=== PATIENT | male | born 2000 ===

== ENCOUNTER 2025-03-12 10:09 | Outpatient (AMB) | payer OTHER, SELFPAY ==
[2025-03-12 10:19] VITALS: BP 117/68; PULSE 94; RESP 16; TEMP 36.7; O2SAT 97; BMI 30.1
--- NOTE | 2025-03-12 10:19 | MHC.PC.OV ---
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 Depression: - Diagnosed in May of the previous year. - Currently managed with prazosin, Depakote, olanzapine, and hydroxyzine. - Reports feeling good with current medication regimen. Anxiety: - Managed with current medication regimen including prazosin and hydroxyzine. Bipolar Disorder: - Diagnosed in May of the previous year. - Managed with Depakote and olanzapine. Insomnia: - Reports difficulty sleeping and waking up during the night. - Discussed with psychiatrist, medication adjustments considered. Review of Systems - Psychiatric: Reports depression, anxiety, and insomnia. Denies any current distress. 10-point ROS reviewed and negative except as noted in HPI Past Medical History - Depression, diagnosed May last year. - Anxiety, managed with medication. - Bipolar disorder, diagnosed May last year. Health Maintenance - Blood tests and electrocardiogram planned for comprehensive health assessment. Physical Exam General: Well-appearing, in no acute distress. Vital signs: Within normal limits. HEENT: Normocephalic, atraumatic. PERRLA, EOMI. Conjunctiva clear, sclera anicteric. Oropharynx clear, mucous membranes moist. TMs intact bilaterally. Neck: Supple, no lymphadenopathy, no thyromegaly, no JVD or carotid bruits. Cardiovascular: RRR, normal S1/S2, no murmurs, rubs, or gallops. Peripheral pulses 2+ and symmetric. No edema. Respiratory: Lungs clear to auscultation bilaterally, no wheezes, rales, or rhonchi. Normal effort. Abdomen: Soft, non-tender, non-distended. Normoactive bowel sounds. No hepatosplenomegaly, no masses. MSK: Full range of motion, no joint swelling or deformity. Normal gait. Skin: Warm, dry, intact. No rashes, lesions, or pallor. Neuro: Alert and oriented x3. Cranial nerves II-XII intact. Strength 5/5 throughout. Sensation intact. Reflexes 2+ symmetric. Normal coordination and gait. Psych: Appropriate mood and affect. Normal judgment and insight. Reports depression, anxiety, and bipolar disorder. Currently taking prazosin, Depakote, olanzapine, and hydrosis. Reports insomnia and difficulty sleeping. Plan 1. Depression - Continue current medication regimen including prazosin, Depakote, olanzapine, and hydroxyzine. - Follow-up with psychiatrist monthly. 2. Anxiety - Continue current medication regimen including prazosin and hydroxyzine. 3. Bipolar Disorder - Continue current medication regimen including Depakote and olanzapine. - Follow-up with psychiatrist monthly. 4. Insomnia - Discuss sleep issues with psychiatrist for potential medication adjustments. Discussion Notes I discussed with the patient the importance of continuing his current medication regimen for depression, anxiety, and bipolar disorder. We also talked about the need for regular follow-ups with his psychiatrist and the plan to conduct blood tests and an electrocardiogram to monitor his health status. Additionally, I advised him to discuss his insomnia with his psychiatrist for potential medication adjustments. Patient was informed and verbally consented to the use of an ambient scribe for clinic note documentation during this visit. Patient Instructions - Continue taking your medications as prescribed. - Follow up with your psychiatrist every month. - Discuss any sleep issues with your psychiatrist. - Attend scheduled blood tests and electrocardiogram appointments. COUNTS INCLUDE 234 BEDS AT THE [facility] Medical History (Updated 03/12/25 @ 10:43 by Juanito Harrison MD) Anxiety and depression Bipolar 1 disorder Family History (Updated 03/12/25 @ 10:25 by Germain Diaz MA) Father No problems noted. Mother No problems noted. Social History (Updated 03/12/25 @ 10:25 by Germain Diaz MA) Housing: Other Alcohol intake: current Alcohol intake frequency: does not drink Patient Tobacco Use Status: Former Tobacco user service: No Current occupational status: unemployed Cognitive needs: No Hearing needs: No Vision needs: No Questionnaire PHQ-9 Over the last 2 weeks, how often have you been bothered by any of the following problems? 1. Little interest or pleasure in doing things: several days 2. Feeling down, depressed, or hopeless: several days 3. Trouble falling or staying asleep, or sleeping too much: several days 4. Feeling tired or having little energy: several days 5. Poor appetite or overeating: not at all 6. Feeling bad about yourself - or that you are a failure or have let yourself or your family down: several days 7. Trouble concentrating on things, such as reading the newspaper or watching television: several days 8. Moving or speaking so slowly that other people could have noticed. Or the opposite - being so fidgety or restless that you have been moving around a lot more than usual: several days 9. Thoughts that you would be better off or of hurting yourself in some way: not at all Total score: 7 Source: Developed by Drs. Chris Mariscal, Cynthia Fernando, Jason Garibay and colleagues, with an educational sherin from [employer]. Thrive Questionnaire I am a: Patient What is your living situation today?: I have a steady place to live Within the past 12 months, did the food you bought not last and you didn't have the money to get more?: Sometimes True Within the past 12 months, did you worry whether your food would run out before you got money to buy more?: Sometimes True Do you have trouble paying for medicines?: No Do you have trouble getting transportation to medical appointments?: No Do you have trouble paying your heating and electricity bill?: No Do you have trouble taking care of your child, family member or friend?: No Are you currently unemployed and looking for a job?: No Are you interested in more education?: No Please select the resources that you would like help with: Housing/Long Term Currently or been in a relationship where the following occur: I choose not to answer THRIVE Score: 2 AUDIT C Alcohol Use Questionnaire (AUDIT-C) 1. How often do you have a drink containing alcohol?: Monthly or less 2. How many drinks containing alcohol do you have on a typical day when you are drinking?: 1 or 2 3. How often do you have six or more drinks on one occasion?: Less than monthly Total Score: 2 JANI-7 AMB Questionnaire JANI-7 Feeling nervous, anxious, or on edge: 1 = Several days Not being able to stop or control worryin = Several days Worrying too much about different things: 1 = Several days Trouble relaxin = Several days Being so restless that it is hard to sit still: 1 = Several days Becoming easily annoyed or irritable: 1 = Several days Feeling afraid as if something awful might happen: 1 = Several days Total JANI-7 score (0-4 normal; 5-9 mild; 10-14 moderate; 15-21 severe): 7 Source: Developed by Drs. Chris Mariscal, Cynthia Fernando, Jason Garibay and colleagues, with an educational sherin from [employer]. Physical exam (Primary Care) Vital Signs: Last Vital Signs Temp 98.1 F 03/12/25 10:19 Pulse 94 03/12/25 10:19 Resp 16 03/12/25 10:19 BP 117/68 03/12/25 10:19 Pulse Ox 97 03/12/25 10:19 Oxygen Delivery Method Room Air 03/12/25 10:19 BMI result Body Mass Index 30.1 Tobacco/Smoking Status: Tobacco use Status Tobacco use date assessed 03/12/25 03/12/25 10:28 Patient Tobacco Use Status Former Tobacco user 03/12/25 10:28 PHQ-9: PHQ-9 Score PHQ-9: Total score 7 03/12/25 10:28 Currently or been in a relationship where the following occur: I choose not to answer Coding Level of Care Code New Pt Level 3 (74838) Diagnoses Bipolar 1 disorder F31.9 Anxiety and depression F41.9; F32.A Encounter to establish care Z76.89 Encounter for screening, unspecified Z13.9 Counseling, unspecified Z71.9 Screening for diabetes mellitus Z13.1 Screening for lipoid disorders Z13.220 Screening for hypertension Z13.6 Screening for heart disease Z13.6 Screening for HIV (human immunodeficiency virus) Z11.4 Difficulty sleeping G47.9 Assessment & Plan Assessment & Plan (1) Bipolar 1 disorder: Code(s): F31.9 - Bipolar disorder, unspecified Category: Medical (2) Anxiety and depression: Code(s): F41.9 - Anxiety disorder, unspecified; F32.A - Depression, unspecified Category: Medical (3) Encounter to establish care: Code(s): Z76.89 - Persons encountering health services in other specified circumstances (4) Encounter for screening, unspecified: Code(s): Z13.9 - Encounter for screening, unspecified (5) Counseling, unspecified: Code(s): Z71.9 - Counseling, unspecified (6) Screening for diabetes mellitus: Code(s): Z13.1 - Encounter for screening for diabetes mellitus (7) Screening for lipoid disorders: Code(s): Z13.220 - Encounter for screening for lipoid disorders (8) Screening for hypertension: Code(s): Z13.6 - Encounter for screening for cardiovascular disorders (9) Screening for heart disease: Code(s): Z13.6 - Encounter for screening for cardiovascular disorders (10) Screening for HIV (human immunodeficiency virus): Code(s): Z11.4 - Encounter for screening for human immunodeficiency virus [HIV] (11) Difficulty sleeping: Code(s): G47.9 - Sleep disorder, unspecified Plan Orders: Orders Comprehensive Met. Panel Today Z13.9 - Encounter for screening, unspecified, Z76.89 - Persons encountering health services in other specified circumstances Hemoglobin A1c Today Z13.9 - Encounter for screening, unspecified, Z76.89 - Persons encountering health services in other specified circumstances Hepatitis B Surface Antibody Today Z13.9 - Encounter for screening, unspecified, Z76.89 - Persons encountering health services in other specified circumstances Syphilis Screen Today Z13.9 - Encounter for screening, unspecified, Z76.89 - Persons encountering health services in other specified circumstances ECG 12 lead EKG Today F31.9 - Bipolar disorder, unspecified, F32.A - Depression, unspecified, F41.9 - Anxiety disorder, unspecified, Z13.9 - Encounter for screening, unspecified Complete Blood Count Auto Diff Today Z13.9 - Encounter for screening, unspecified, Z76.89 - Persons encountering health services in other specified circumstances Hepatitis B Surface Antigen Today Z13.9 - Encounter for screening, unspecified, Z76.89 - Persons encountering health services in other specified circumstances Hepatitis C Antibody Today Z13.9 - Encounter for screening, unspecified, Z76.89 - Persons encountering health services in other specified circumstances HIV Ab/Ag Today Z13.9 - Encounter for screening, unspecified, Z76.89 - Persons encountering health services in other specified circumstances Lipid Panel Today Z13.9 - Encounter for screening, unspecified, Z76.89 - Persons encountering health services in other specified circumstances Chlamydia Species Ab Panel Today Z13.9 - Encounter for screening, unspecified, Z76.89 - Persons encountering health services in other specified circumstances CT NG by PCR Urine Today Z13.9 - Encounter for screening, unspecified, Z76.89 - Persons encountering health services in other specified circumstances TSH reflex Free T4 Today Z13.9 - Encounter for screening, unspecified, Z76.89 - Persons encountering health services in other specified circumstances UA CC w/rflx Micro + Cult Today Z13.9 - Encounter for screening, unspecified, Z76.89 - Persons encountering health services in other specified circumstances Vitamin B12 and Folate Today Z13.9 - Encounter for screening, unspecified, Z76.89 - Persons encountering health services in other specified circumstances Vitamin D 1,25 dihydroxy Today Z13.9 - Encounter for screening, unspecified, Z76.89 - Persons encountering health services in other specified circumstances
--- OUTSIDE RECORDS SUMMARY | 2025-03-12 11:26 | XMS_ITS | Clinical Summary ---
Author Organization [employer] Address [address] [place] [address] Care Team Providers Care Heavy Equipment Sales Associate Name Role Phone Physician, No Pcp Primary Care Provider Unavaila ble Allergies No known active allergies Medications buPROPion XL (WELLBUTRIN XL) 150 mg 24 hr tablet Take 1 tablet (150 mg total) by mouth 1 (one) time each day. Do not crush, chew, or split. 06/09/2024 Active OLANZapine (ZyPREXA) 20 mg tablet Take 1 tablet (20 mg total) by mouth at bedtime. 06/09/2024 Active nicotine polacrilex (NICORETTE) [address] 1 each (4 mg total) into mouth between cheek and gum every 1 (one) hour if needed for smoking cessation. 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 (CMS/HCC V24, CMS/HCC V28) 05/14/2024 Medical History Medical History Date Comments Depression Anxiety Social History Tobacco Use Types Packs/Day Years Used Date Smoking Tobacco: Every Day Cigarettes Smokeless Tobacco: Never Tobacco Cessation:Ready to Q uit: Not Asked; Counseling Given: Not Answered Alcohol Use Standard Drinks/Week Comments Yes 0 (1 standard drink = 0.6 oz pur e alcohol) Sex and Gender Information Value Date Recorded Sex Assigned at Male 04/29/2024 10:23 AM EST Legal Sex Male 12:37 PM EDT Gender Identity Male 04/29/2024 10:23 AM EST Sexual Orientation Choose not to disclose 2023 10:23 AM EST Obstetrics History Last Filed Vital Signs Vital Sign Reading Time Taken Comments Blood Pressure 105/62 06/10/2024 9:10 AM EST Pulse 74 06/10/2024 9:10 AM EST Temperature 36.8 C (98.2 F) 06/10/2024 9:10 AM EST Respiratory Rate 16 06/10/2024 9:10 AM EST Oxygen Saturation 98% 06/10/2024 9:10 AM EST Inhaled Oxygen Concentration - - Weight 81.6 kg (180 lb) 06/09/2024 8:43 AM EST Height 180.3 cm (5' 11 ) 06/09/2024 8:43 AM EST Body Mass Index 25.1 06/09/2024 8:43 AM EST Plan of Treatment Health Maintenance Due Date Last Done Comments HPV Vaccines (1 - Male 3-dos e series) 2015 DTaP,Tdap,and Td Vaccines (1 - Tdap) 2019 Hepatitis A Vaccines (1 of 2 - Risk 2-dose series) 2019 Hepatitis B Vaccines (1 of 3 - 19+ 3-dose series) 2019 Pneumococcal Vaccine: Pediat rics (0 to 5 Years) and At-Risk Patients (6 to 49 Years) (1 of 2 - PCV) 2019 Cholesterol Screening (Lipid Panel) 04/01/2024 HIV Screening 04/01/2024 Hepatitis C Screening 04/01/2024 Social Influencers of Health Screening 04/01/2024 Depression Screening 06/17/2024 COVID-19 Vaccine ( - 2023-2 5 season) 2025 Influenza Vaccine (#1) 2025 HIB Vaccines Aged Out No longer eligi ble based on patient's age to complete this topic IPV Vaccines Aged Out No longer eligi ble based on patient's age to complete this topic MMR Vaccines Aged Out No longer eligi ble based on patient's age to complete this topic Meningococcal ACWY Vaccine Aged Out N o longer eligible based on patient's age to complete this topic Meningococcal B Vaccine Aged Out No l onger eligible based on patient's age to complete this topic RSV Immunization Patients Un sadia 20 months Aged Out No longer eligible b ased on patient's age to complete this topic Varicella Vaccines Aged Out No longer eligible based on patient's age to complete this topic Insurance [facility] Care Teams Heavy Equipment Sales Associate Relationship Specialty Start Date End Date Physician, No Pcp PCP - General 04/18/24
== END 2025-03-12 10:48 | disposition home or self-care (01) ==
LOC: HO.HMCFMS 10:10
PROVIDERS: PCP Student in an Organized Health Care Education/Training Program; Visit Provider Student in an Organized Health Care Education/Training Program
DX: F31.9 Bipolar disorder, unspecified (principal); F41.9 Anxiety disorder, unspecified; G47.9 Sleep disorder, unspecified

== ENCOUNTER 2025-03-12 10:09 | Outpatient (REF) | payer OTHER, SELFPAY ==
[2025-03-12 13:12] LABS: MANUAL DIFF FLAG NO
[2025-03-12 13:21] LABS: Appearance Urine Clear; Glucose Urine UA Negative (Negative); PH 6.5 (5.0-9.0); Specific Gravity - Urine 1.020 (1.005-1.025); UMIC TRIGGER UACC YES
[2025-03-12 13:25] LABS: UACC Culture Trigger YES
[2025-03-12 13:29] LABS: Hematocrit 44.1 % (42.0-52.0); Hemoglobin 14.8 g/dl (14.0-18.0); Imm Gran Abs Auto 0.02 X10*3/uL (0.00-0.03); Imm Gran Pct Auto 0.4 % (0.0-0.4); Lymphocytes Absolute Auto 2.2 X10*3/uL (1.2-4.9); Mean Corpuscular HGB Conc 33.6 g/dl (31.0-36.0); Mean Corpuscular Hemoglobin 31.0 pg (27.0-33.0); Mean Corpuscular Volume 92.5 fL (80.0-98.0); NRBC Abs Auto 0.000 X10*3/uL (0.0-0.012); NRBC Pct Auto 0.0 /100WBC (0.0-0.2); Platelet Count 173 X10*3/uL (160-400); Red Blood Count 4.77 X10*6/uL (4.60-5.80); White Blood Count 4.6 X10*3/uL (4.8-10.8)
[2025-03-12 15:41] LABS: CT PCR Urine NOT DETECTED (Not Detect.); NG PCR Urine NOT DETECTED (Not Detect.)
[2025-03-12 18:37] LABS: Alanine Aminotransferase 13 U/L (0-40); Albumin Level 4.6 g/dL (3.5-5.0); Alkaline Phosphatase 48 U/L (39-117); Anion Gap 14 (12-20); Aspartate Amino Transferase 27 U/L (5-37); Blood Urea Nitrogen 17 mg/dL (9-16); Calcium 9.4 mg/dL (8.4-10.2); Carbon Dioxide 27 mmol/L (22-29); Chloride 104 mmol/L (96-108); Cholesterol 288 mg/dL (<200); Estimated Glomerular Filt Rate > 60; HDL Cholesterol 42 mg/dL (>40); Potassium 4.3 mmol/L (3.3-5.1); Sodium 141 mmol/L (135-145); Total Protein 7.6 g/dL (6.5-8.0); Triglycerides 331 mg/dL (<150)
[2025-03-12 18:59] LABS: Folate 14.1 ng/mL (> or = 4.0); Vitamin B12 349 pg/mL (200-900)
[2025-03-15 04:01] LABS: Syphilis Screen Nonreactive (Nonreactive)
[2025-03-15 04:23] LABS: HBS Num1 6.33 mIU/mL (0-7.99); HBsAGNum1 0.33 S/CO (0.00-0.99); HIV Num 1 0.05 S/CO (0.00-0.99); Hepatitis B Surface Antigen Negative (Negative); ~HepC Num1 0.09 S/CO (0.00-0.79); ~Hepatitis B Surface Antibody NONREACTIVE (Nonreactive); ~Hepatitis C Antibody Nonreactive (Nonreactive)
[2025-03-16 17:28] LABS: VITAMIN D (1,25 OH) D3 22 pg/mL; Vit D (1,25-Dihydroxy) Total 22 pg/mL (18-72); Vitamin D (1,25 OH) D2 <8 pg/mL
[2025-03-17 11:29] LABS: Chlamydia Trachomatis IgA <1:16 titer (<1:16)
== END 2025-03-12 10:10 | disposition home or self-care (01) ==
LOC: HO.HKASLDS 10:09
PROVIDERS: Visit Provider Student in an Organized Health Care Education/Training Program
DX: Z76.89 Persons encountering health services in other specified circumstances (principal); Z13.9 Encounter for screening, unspecified; Z13.1 Encounter for screening for diabetes mellitus; Z13.220 Encounter for screening for lipoid disorders; Z13.6 Encounter for screening for cardiovascular disorders; Z11.4 Encounter for screening for human immunodeficiency virus [HIV]; Z71.9 Counseling, unspecified; F31.9 Bipolar disorder, unspecified; F41.9 Anxiety disorder, unspecified; G47.9 Sleep disorder, unspecified
CPT/HCPCS: 80053; 80061; 81001; 82607; 82652; 82746; 83036; 84443; 85025; 86631; 86632; 86706; 86780; 86803; 87086; 87340; 87389; 87491; 87591; 99202

== ENCOUNTER 2025-04-02 10:12 | Outpatient (AMB) | payer OTHER, SELFPAY ==
[2025-04-02 10:19] VITALS: BP 136/78; PULSE 106; RESP 16; TEMP 36.3; O2SAT 96; BMI 32.1
--- NOTE | 2025-04-02 10:19 | A.OFFPC_ITS ---
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 History of Present Illness The patient is a 24-year-old male presenting with lab results review. Hyperlipidemia: The patient has elevated cholesterol levels, with total cholesterol at 288 mg/dL and LDL cholesterol at 180 mg/dL, both above the normal range. Dietary habits include high intake of cheese and eggs, which may contribute to the elevated cholesterol levels. Hypertriglyceridemia: The patient's triglyceride level is significantly elevated at 331 mg/dL, which is more than double the normal upper limit of 150 mg/dL. The patient consumes sugary drinks, which may exacerbate the triglyceride levels. Social History - Nutritional intake: High consumption o f sugary drinks and foods rich in cholesterol such as cheese and eggs. Diagnostic Results: - Labs: White blood cell count at 4.6 x 10^9/L (normal range: 4.8-10.8 x 10^9/L) - Labs: Total cholesterol at 288 mg/dL ( normal <200 mg/dL) - Labs: LDL cholesterol at 180 mg/dL (no rmal <100 mg/dL) - Labs: Triglycerides at 331 mg/dL (norm al <150 mg/dL) - Labs: Sodium, potassium, kidney functi on, glucose, hemoglobin A1c, calcium, liver function, vitamin B12, vitamin D, folate, thyroid function, and urine analysis are within normal limits. - Labs: Negative for hepatitis B, C, and HIV. Review of Systems - General: Denies fever or any signs of infection. - Genitourinary: Denies dysuria or any u rinary discomfort. 10-point ROS reviewed and negative excep t as noted in HPI Past Medical History Health Maintenance - Dietary modification: Advised to reduc e intake of sugary drinks and foods high in cholesterol. - Referral to a felt hat mellowing machine operator for dietary education and management. Physical Exam General: Well-appearing, in no acute distress. Vital signs: Within normal limits. HEENT: Normocephalic, atraumatic. PERRLA, EOMI. Conjunctiva clear, sclera anicteric. Oropharynx clear, mucous membranes moist. TMs intact bilaterally. Neck: Supple, no lymphadenopathy, no thyromegaly, no JVD or carotid bruits. Cardiovascular: RRR, normal S1/S2, no murmurs, rubs, or gallops. Peripheral pulses 2+ and symmetric. No edema. Respiratory: Lungs clear to auscultation bilaterally, no wheezes, rales, or rhonchi. Normal effort. Abdomen: Soft, non-tender, non-distended. Normoactive bowel sounds. No hep atosplenomegaly, no masses. MSK: Full range of motion, no joint swelling or deformity. Normal gait. Skin: Warm, dry, intact. No rashes, lesions, or pallor. Neuro: Alert and oriented x3. Cranial nerves II-XII intact. Strength 5/5 throughout. Sensation intact. Reflexes 2+ symmetric. Normal coordination and gait. Psych: Appropriate mood and affect. Normal judgment and insight. Plan 1. Hyperlipidemia - Initiate omega-3 fatty acid supplement ation to help lower cholesterol levels. - Dietary changes recommended, including reducing intake of cheese and eggs. - Referral to a felt hat mellowing machine operator for further dietary management. 2. Hypertriglyceridemia - Holly-3 fatty acid supplementation rec ommended to lower triglyceride levels. - Advised to reduce consumption of sugar y drinks. Discussion Notes I discussed with the patient that his cholesterol and triglyceride levels are elevated and recommended omega-3 supplements to help manage these levels. I advised dietary changes, including reducing cheese and egg consumption, and referred him to a felt hat mellowing machine operator for further guidance. We also reviewed his lab results, noting a slightly low white blood cell count, which will be monitored with repeat labs in six months. Patient Instructions - Take omega-3 supplements as prescribed : two in the morning and two at night. - Reduce intake of sugary drinks and raymond ds high in cholesterol like cheese and eggs. - Follow up with the felt hat mellowing machine operator for di etary advice. - Return for repeat lab tests in six mon ths to monitor white blood cell count. Medical Decision Making The decision to initiate omega-3 supplementation was based on the patient's elevated cholesterol and triglyceride levels, aiming to reduce cardiovascular risk. Dietary modifications were recommended to address hyperlipidemia and hypertriglyceridemia, with a referral to a felt hat mellowing machine operator for comprehensive management. The low white blood cell count will be monitored, as there are no current symptoms indicating infection. Total time spent caring for the patient today was 30 minutes. This includes time spent before the visit reviewing the chart, time spent documenting, and time spent reviewing laboratory results, diagnostic imaging, medications, performing a medically necessary evaluation, counseling on diagnoses, care coordination, ordering appropriate tests, ordering appropriate medications. [facility] Medical History (Updated 04/02/25 @ 12:16 by Juanito Harrison MD) Hypertriglyceridemia Hyperlipidemia Anxiety and depression Bipolar 1 disorder Family History Father No problems noted. Mother No problems noted. Social History Housing: Other Alcohol intake: current Alcohol intake frequency: does not drink Patient Tobacco Use Status: Former Tobacco user service: No Current occupational status: unemployed Cognitive needs: No Hearing needs: No Vision needs: No Questionnaire Thrive Questionnaire Date Thrive assessed: 04/02/25 I am a: Patient What is your living situation today?: I have a steady place to live Within the past 12 months, did the food you bought not last and you didn't have the money to get more?: Sometimes True Within the past 12 months, did you worry whether your food would run out before you got money to buy more?: Sometimes True Do you have trouble paying for medicines?: No Do you have trouble getting transportation to medical appointments?: No Do you have trouble paying your heating and electricity bill?: No Do you have trouble taking care of your child, family member or friend?: No Are you currently unemployed and looking for a job?: No Are you interested in more education?: No Please select the resources that you would like help with: Housing/Fdc Currently or been in a relationship where the following occur: I choose not to answer THRIVE Score: 2 AUDIT C Alcohol Use Questionnaire (AUDIT-C) 1. How often do you have a drink containing alcohol?: Monthly or less 2. How many drinks containing alcohol do you have on a typical day when you are drinking?: 1 or 2 3. How often do you have six or more drinks on one occasion?: Less than monthly Total Score: 2 JANI-7 AMB Questionnaire JANI-7 Date JANI - 7 assessed: 04/02/25 Source: Developed by Drs. Chris Mariscal, Cynthia Fernando, Jason Garibay and colleagues, with an educational sherin from [employer]. Physical exam (Primary Care) Vital Signs: Last Vital Signs Temp 97.3 F 04/02/25 10:19 Pulse 106 H 04/02/25 10:19 Resp 16 04/02/25 10:19 BP 136/78 04/02/25 10:19 Pulse Ox 96 04/02/25 10:19 Oxygen Delivery Method Room Air 04/02/25 10:19 BMI result Body Mass Index 32.1 Tobacco/Smoking Status: Tobacco use Status Tobacco use date assessed 04/02/25 04/02/25 10:21 Patient Tobacco Use Status Former Tobacco user 04/02/25 10:21 Thrive Assessment: Date of Thrive Assessment Date Thrive assessed 04/02/25 04/02/25 10:21 Currently or been in a relationship where the following occur: I choose not to answer Coding Level of Care Code Est Pt Level 4 (64534) Diagnoses Hypertriglyceridemia E78.1 Hyperlipidemia E78.5 Assessment & Plan Assessment & Plan (1) Hypertriglyceridemia: Code(s): E78.1 - Pure hyperglyceridemia Category: Medical (2) Hyperlipidemia: Code(s): E78.5 - Hyperlipidemia, unspecified Category: Medical Plan Orders: Referrals Nurse Navigator Referral E78.1 - Pure hyperglyceridemia, E78.5 - Hyperlipidemia, unspecified Medications: New omega-3 acid ethyl esters 2 caps PO BID 360 caps 0RF
--- OUTSIDE RECORDS SUMMARY | 2025-04-02 12:03 | XMS_ITS | Clinical Summary ---
Author Organization [facility] Address [address] [place] [address] Care Team Providers Care Gse Mechanic Name Role Phone Unavailable Primary Care Provider Unavailabl e Source Comments PLEASE NOTE, if this patient is a minor, it may be UNLAWFUL to discuss sensitive information that is contained in these records (such as FAMILY PLANNING, MENTAL HEALTH or SUBSTANCE ABUSE) with the minor patient's parent or other person without the patient's specific authorization.[facility] Allergies No known active allergies Medications nicotine, polacrilex, (NICORETTE) 2 mg gum Take 1 Each by mouth every 1 hour as needed for smoking cessation 190 Each 5 4 Active buPROPion XL (WELLBUTRIN XL) 150 mg 24 hr tablet Take 1 Tablet by mouth every morning 30 Tablet 2 4 Active OLANZapine (ZYPREXA) 20 mg tablet TAKE 1 TABLET BY MOUTH EVERYDAY AT BEDTIME 30 Tablet 4 Active Active Problems Problem Noted Date Diagnosed Date Sheltered homelessness 03/21/2023 Marijuana user 01/28/2023 Psychosis 01/28/2023 Assessment & Plan (04/30/2023 1:40 PM EST): F/B Dr Joy, on zyprexa 20mg HS, states has just a few left. Reinforced he has refills and can go to pharmacy and get Cigarette nicotine dependence without complicati on 01/28/2023 Assessment & Plan (04/30/2023 1:46 PM EST): Encouraged to cut down or quit smoking to allow better lung healing. Continues to use nicorette gum prn which is helpful Alcohol use disorder, moderate 01/22/2023 Assessment & Plan (08/09/2023 12:16 PM EST): PT states that he has been able to maintain his sobriety and is doing well. Going to adventism with his grandmother. Assessment & Plan (01/22/2023 11:05 AM EDT): Pt reports to this medical technical writer that he has been having a lot of cravings to drink alcohol. He does not have a history of being on any MAT and reports this is his first time in a treatment program for substance use disorder. He is scheduled to see this medical technical writer again on Saturday01/23/23. That day we will consult with Linnea Ibrahim about starting Pt on Naltrexone. Pt is agreeable to this plan. Other specified counseling 01/22/2023 Assessment & Plan (08/09/2023 12:19 PM EST): This medical technical writer [facility] They couldn't process it, because they didn't have any insurance information for him. Information was given, as well as updated address and phone number. Pt told he can go flower picker the medication around 12pm today. He will call this medical technical writer if there is any issue with the pharmacy again. After troubleshooting a bit, Pt was able to successfully connect [place] his appointment. He was walking around the house and the connection was interrupted a few times. The connection worked better off of wi-fi and Pt staying in one place. Reminded him that for his appt next week he will need to be in his room or another private area in the house to speak to the doctor. He is aware that a link will be sent to him that morning as it was today. Grandmother and Pt will inform clinic if they are able to locate a clinic near them, and this medical technical writer will help with a warm handoff. Assessment & Plan (01/22/2023 11:34 AM EDT): Per MDT notes about this Pt, his recollection of events and those reported by his grandmother are very different. During [facility] admission it was identified that Pt was having suicidal ideation, jumping off a building, hanging himself in the shower. Later during the admission he denied those thoughts. It is unclear what his psychiatric diagnosis is at this time. Pt is being seen by the [facility] clinic at [facility], and they are the ones that prescribed the Olanzapine. He is scheduled for psychiatric intake with Dr. Joy on 02/25/23. Until then he is to continue seeing the [facility] clinic. Resolved Problems Problem Noted Date Diagnosed Date Resolved Date Pneumonia of left lung due t o infectious organism 04/30/2023 08/09/2023 Assessment & Plan (04/30/2023 1:44 PM EST): S/p [facility] ED visit. Left midlobe opacity seen, scripted for 7 days augmentin and doxycycline, which he has just completed. Had some GI se's but tolerated and completed meds, feels much better. Some lingering fatigue. Encouraged to hydrate, pt reports drinks no water at all. Unspecified depressive disorder 12/01/2022 01/21/2023 Threatening suicide 11/29/2022 01/22/20 Brief psychotic disorder 11/23/202212/2022 Immunizations Immunization Administration Dates Next Due PPD 01/21/2023 Family History Relation Name Status Comments Maternal Grandmother Alive Mother Alive Sister 1 Alive Sister 2 Alive Social History Tobacco Use Types Packs/Day Years Used Date Smoking Tobacco: Every Day Cigarettes Smokeless Tobacco: Never Tobacco Cessation:Ready to Q uit: Not Asked; Counseling Given: Not Answered Alcohol Use Standard Drinks/Week Comments Not Currently 0 (1 standard drink = 0.6 oz pure alcohol) PT states he was drinking upwards of 3-4 pints a day. Social Connections Answer Date Recorded Connectedness 0 02/25/2024 Financial Resource Strain Answer Date R ecorded Financial Resource Strain 0 2022 Stress Answer Date Recorded Stress 0 01/18/2023 Physical Activity Answer Date Recorded Physical Activity 0 01/18/2023 Food Insecurity Answer Date Recorded Food 0 01/21/2023 Transportation Needs Answer Date Record ed Transportation 0 01/21/2023 Housing Stability Answer Date Recorded Housing 0 01/21/2023 Safety and Environment Answer Date Chidi rded Safety 0 01/18/2023 Utilities Answer Date Recorded Utilities 0 01/21/2023 Employment Answer Date Recorded Stress 0 01/21/2023 Sex and Gender Information Value Date Recorded Sex Assigned at Male 01/21/2023 10:06 AM PDT Legal Sex Male 5:35 AM PDT Gender Identity Male 01/21/2023 10:06 AM PDT Sexual Orientation Straight 01/21/2023 10 :06 AM PDT Last Filed Vital Signs Vital Sign Reading Time Taken Comments Blood Pressure 126/77 04/30/2023 12:37 PM EST Pulse 104 04/30/2023 12:37 PM EST Temperature 36.7 C (98.1 F) 04/30/2023 12:37 PM EST Respiratory Rate 16 04/30/2023 12:37 PM EST Oxygen Saturation 98% 04/30/2023 12:37 PM EST Inhaled Oxygen Concentration - - Weight 88.2 kg (194 lb 6.4 oz) 04/30/2023 12:37 PM EST Height 180.3 cm (5' 11 ) 01/21/2023 11:46 AM EDT Body Mass Index 27.11 01/21/2023 11:46 AM EDT Plan of Treatment Health Maintenance Due Date Last Done Comments Imm-Varicella (1 of 2 - 13+ 2-dose series) 2013 HIV Screening 2015 Imm-HPV (1 - Male 3-dose series) 2015 Imm-DTaP/Tdap/Td (1 - Tdap) 2019 Imm-Hepatitis A (1 of 2 - Ri sk 2-dose series) 2019 Imm-Hepatitis B (1 of 3 - 19 + 3-dose series) 2019 Imm-Pneumococcal (1 of 2 - PCV) 2019 Lipid Screening 12/03/2023 12/02/2022, 11/24/2022 Anxiety Screening 01/22/2024 01/21/2023 LTBI Screening (#1) 01/22/2024 01/21/2023 Tobacco Screening 03/27/2024 03/27/2023 Diabetes Screening 04/22/2024 04/22/2023, 0 12/02/2022, 11/24/2022, Additional history exists Hypertension Screening (#1) 04/29/2024 Alcohol and Drug Screen 06/17/2024 Depression Annual Screen 06/17/2024 01/21/2023 Tobacco Cessation Counseling (#1) 08/14/2024 10/11/2 023 [id number] ( season) 2025 Imm-Influenza (#1) 2025 Hepatitis C Screening Completed 04/22/2023, 023 [facility] HEALTH STRATEGIES [facility] Member Subscriber Plan / Payer (Ef fective 2023-Present) Name:Jerzy Waldron Relation to Subscriber:Self Name:Jerzy Waldron Payer ID:[id number] Group ID:Not on file Type:Medicaid Address: [address] [address] [place] [address]
--- OUTSIDE RECORDS SUMMARY | 2025-04-02 12:03 | XMS_ITS | Clinical Summary ---
Author Organization [facility] Address [address] [place] [address] Care Team Providers Care Manager Service Desk Name Role Phone Physician, No Pcp Primary [...] Screening 04/01/2024 Depression Screening 06/17/2024 COVID-19 Vaccine (1 - 2023-2 5 season) 2025 Influenza Vaccine (#1) 2025 RSV Immunization Adult Patie nts (1 - 1-dose 75+ series) 2075 HIB Vaccines Aged Out No longer eligi [...] patient's age to complete this topic Insurance [facility] Care Teams Manager Service Desk Relationship Specialty Start Date End Date Physician, No Pcp PCP - General 04/18/24
== END 2025-04-02 10:56 | disposition home or self-care (01) ==
LOC: HO.HMCFMS 10:13
PROVIDERS: PCP Student in an Organized Health Care Education/Training Program; Visit Provider Student in an Organized Health Care Education/Training Program
DX: E78.1 Pure hyperglyceridemia (principal); E78.5 Hyperlipidemia, unspecified

== ENCOUNTER → 2025-04-02 10:12 | Outpatient (BNVA) | payer OTHER, SELFPAY | PROVIDERS: PCP Student in an Organized Health Care Education/Training Program; Visit Provider Student in an Organized Health Care Education/Training Program | DX: E78.1 Pure hyperglyceridemia (principal); E78.5 Hyperlipidemia, unspecified | CPT/HCPCS: 99212 ==